=== PATIENT | male | born 1995 ===

== ENCOUNTER 2022-06-04 19:54 | Emergency (ER) | payer SELFPAY ==
[2022-06-04] MEDS ORDERED: HYDROmorphone 1 MG/ML Syringe IVPUSH ONE (20:03)
[2022-06-04] MEDS ORDERED: Propofol 200 MG/20 ML SDV IVPUSH ONE (20:48)
[2022-06-04] MEDS ORDERED: Sodium Chloride 0.9% 1,000 ML IV ONE (20:48)
== END 2022-06-04 23:50 | disposition home or self-care (01) ==
LOC: MW.ED 19:54
DX: S43.004A Unspecified dislocation of right shoulder joint, initial encounter (principal); F10.920 Alcohol use, unspecified with intoxication, uncomplicated; X58.XXXA Exposure to other specified factors, initial encounter
CPT/HCPCS: 23650; 73030; 96361; 96374; 99152; 99283; J1170; J2704; J7030; 99284

== ENCOUNTER 2022-06-17 03:49 | Emergency (ER) | payer MEDICAID | END 2022-06-17 04:37 | LOC: MW.ED 03:49 | DX: Z02.89 Encounter for other administrative examinations (principal); Z86.16 Personal history of COVID-19 | CPT/HCPCS: 99282 ==